=== PATIENT | female | born 1985 | race Caucasian/White ===

== ENCOUNTER 2017-01-27 20:41 | Emergency (ER) | payer OTHER ==
[~2017-01-27] VITALS: Ht 162.6 cm; Wt 49.4 kg
[2017-01-27 20:48] VITALS: TEMP 37; Ht 162.6 cm; Wt 49.4 kg
[2017-01-27] MEDS ORDERED: DiphenhydrAMINE HCL 50 MG/ML VIAL IV STA (21:51)
[2017-01-27] MEDS ORDERED: KETOROLAC TROMETHAMINE 30 MG/ML VIAL IV STA (21:51)
[2017-01-27] MEDS ORDERED: METOCLOPRAMIDE HCL INJ 5 MG/ML 2 ML VIAL IM STA (21:51)
[2017-01-27] MEDS ORDERED: NURSING VERBAL MED ORDER ONE (22:15)
[2017-01-27 22:18] LABS: BASO % 0.6 %; BASO ABS # 0.03 K/uL (0-0.2); COMPLETE YES; HEMATOCRIT 35.6 % (37-47); IG% 0.2 %; LYMPH % 33.8 %; LYMPH ABS # 1.83 K/uL (1.2-3.4); MEAN CELL VOLUME 89.2 fL (80-100); MEAN CORPUSCULAR HEMOGLOBIN 29.3 pg (25-34); MEAN CORPUSCULAR HGB CONC 32.9 g/dl (32-36); MEAN PLATELET VOLUME 10.4 fL (7.4-10.4); NEUT % 57.4 %; PLATELET COUNT 224 K/uL (130-400); RED BLOOD COUNT 3.99 M/uL (4.2-5.4); WHITE BLOOD COUNT 5.42 K/uL (4.8-10.8)
--- NOTE | 2017-01-27 22:26 | EMERGENCY ROOM VISIT NOTE ---
History Report prepared by Jody: Maik Jameson Under the Supervision of: Dr. Ebenezer Contreras D.O. First contact with patient: 21:38 Chief Complaint: HEADACHE Stated Complaint: HEADACHE, FEVER 102.7, STOMACH ISSUES,HEAD TENSION History of Present Illness The patient is a 31 year old female who presents to the Emergency Room with complaints of an intermittent headache starting a few months ago. The patient has been having a headache every day. She has a history of migraine headaches but reports that her current headache is different. She has been evaluated by multiple providers for her persistent headache. 2 days ago, she was evaluated at the Emergency Room in [place] for the headache. She received a negative CT scan. She was diagnosed with vertigo and was discharged home. The patient also complains of ear ache. She has worsening pain with exposure to light. She also reports intermittent fevers, nausea, and diffuse abdominal pain. She denies dizziness, weakness, or any other complaints. Source of History: patient Onset: a few months ago Position: head Timing: intermittent Modifying Factors (Worsening): other (exposure to light) Associated Symptoms: + abdominal pain, + fevers, + nausea, No weakness Review of Systems See HPI for pertinent positives and negatives. A total of ten systems were reviewed and were otherwise negative. Past Medical & Surgical Medical Problems: (1) Migraine headache Family History Patient reports no known family medical history. Social History Smoking Status: Current Some Day Smoker Marital Status: single Occupation Status: unemployed Current/Historical Medications Scheduled Buprenorphine Hcl-Naloxone Hcl (Suboxone 8-2 Mg), 0.5 TAB PO DAILY Omeprazole (Prilosec), 40 MG PO DAILY Scheduled PRN Ondansetron Hcl (Zofran), 4 MG PO Q6 PRN for Nausea Allergies Coded Allergies: Rizatriptan (Verified Allergy, Severe, SHORTNESS OF BREATH, 01/27/17) Physical Exam Vital Signs Date Time Temp Pulse Resp B/P Pulse Ox O2 Delivery O2 Flow Rate FiO2 01/27/17 22:40 61 20 113/77 100 Room Air 01/27/17 22:25 63 01/27/17 20:48 37.0 63 16 102/68 100 Room Air Physical Exam GENERAL: Awake, alert, well-appearing, in no distress. Photophobia. HENT: Normocephalic, atraumatic. Oropharynx unremarkable. EYES: Normal conjunctiva. Sclera non-icteric. NECK: Supple. No nuchal rigidity. FROM. No JVD. RESPIRATORY: Clear to auscultation. CARDIAC: Regular rate, normal rhythm. Extremities warm and well perfused. Pulses equal. ABDOMEN: Soft, non-distended. No tenderness to palpation. No rebound or guarding. No masses. RECTAL: Deferred. MUSCULOSKELETAL: Chest examination reveals no tenderness. The back is symmetrical on inspection without obvious abnormality. There is no CVA tenderness to palpation. No joint edema. LOWER EXTREMITIES: Calves are equal size bilaterally and non-tender. No edema. No discoloration. NEURO: Normal sensorium. No sensory or motor deficits noted. SKIN: No rash or jaundice noted. Medical Decision & Procedures Laboratory Results 01/27/17 22:05 Red Blood Count 3.99, Mean Corpuscular Volume 89.2, Mean Corpuscular Hemoglobin 29.3, Mean Corpuscular Hemoglobin Concent 32.9, Mean Platelet Volume 10.4, Neutrophils (%) (Auto) 57.4, Lymphocytes (%) (Auto) 33.8, Monocytes (%) (Auto) 5.0, Eosinophils (%) (Auto) 3.0, Basophils (%) (Auto) 0.6, Neutrophils # (Auto) 3.12, Lymphocytes # (Auto) 1.83, Monocytes # (Auto) 0.27, Eosinophils # (Auto) 0.16, Basophils # (Auto) 0.03 01/27/17 22:05 Test 01/27/17 22:05 White Blood Count 5.42 K/uL (4.8-10.8) Red Blood Count 3.99 M/uL (4.2-5.4) Hemoglobin 11.7 g/dL (12.0-16.0) Hematocrit 35.6 % (37-47) Mean Corpuscular Volume 89.2 fL (80-100) Mean Corpuscular Hemoglobin 29.3 pg (25-34) Mean Corpuscular Hemoglobin Concent 32.9 g/dl (32-36) Platelet Count 224 K/uL (130-400) Mean Platelet Volume 10.4 fL (7.4-10.4) Neutrophils (%) (Auto) 57.4 % Lymphocytes (%) (Auto) 33.8 % Monocytes (%) (Auto) 5.0 % Eosinophils (%) (Auto) 3.0 % Basophils (%) (Auto) 0.6 % Neutrophils # (Auto) 3.12 K/uL (1.4-6.5) Lymphocytes # (Auto) 1.83 K/uL (1.2-3.4) Monocytes # (Auto) 0.27 K/uL (0.11-0.59) Eosinophils # (Auto) 0.16 K/uL (0-0.5) Basophils # (Auto) 0.03 K/uL (0-0.2) RDW Standard Deviation 39.8 fL (36.4-46.3) RDW Coefficient of Variation 12.2 % (11.5-14.5) Immature Granulocyte % (Auto) 0.2 % Immature Granulocyte # (Auto) 0.01 K/uL (0.00-0.02) Anion Gap 5.0 mmol/L (3-11) Est Creatinine Clear Calc Drug Dose 96.9 ml/min Estimated GFR () 136.2 Estimated GFR (Non- 117.5 BUN/Creatinine Ratio 10.2 (10-20) Total Bilirubin 0.8 mg/dl (0.2-1) Direct Bilirubin 0.2 mg/dl (0-0.2) Aspartate Amino Transf (AST/SGOT) 27 U/L (15-37) Alanine Aminotransferase (ALT/SGPT) 39 U/L (12-78) Alkaline Phosphatase 39 U/L (45-117) Total Protein 8.0 gm/dl (6.4-8.2) Albumin 3.8 gm/dl (3.4-5.0) Laboratory results reviewed by me Medications Administered Medications (Trade) Dose Ordered Sig/Dale Route Start Time Stop Time Status Last Admin Dose Admin Diphenhydramine HCl (Benadryl Inj) 50 mg NOW STAT IV 01/27/17 21:51 01/27/17 21:53 DC 01/27/17 22:31 50 MG Ketorolac Tromethamine (Toradol Inj) 30 mg NOW STAT IV 01/27/17 21:51 01/27/17 21:53 DC 01/27/17 22:32 30 MG Metoclopramide HCl 10 mg 10 mg NOW STAT IM 01/27/17 21:51 01/27/17 21:53 DC 01/27/17 22:30 10 MG Sodium Chloride (Nss 1000ml) 1,000 ml @ 999 mls/hr Q1H1M IV 01/27/17 22:45 01/27/17 23:45 01/27/17 22:33 999 MLS/HR ECG Indication: other (Headache) Rate (beats per minute): 56 Rhythm: sinus bradycardia Findings: no acute ischemic change, other (Normal intervals; normal axis) ED Course 2137: The patient was evaluated in room C09. A complete history and physical exam was performed. 2150: Reglan Inj 10 mg IM, Toradol Inj 30 mg IV, Benadryl Inj 50 mg IV 3: I reevaluated the patient who is feeling much better. Discussed results and discharge instructions: She verbalized understanding and agreement. The patient is ready for discharge. Medical Decision Differential diagnosis includes but is not limited to migraine headache, tension headache, dehydration, electrolyte abnormalities. Repeat examination on the patient at 2304 the patient is resting in no distress nonfocal neurologically states improved headache. I discussed the evaluation including blood work with the patient patient's at bedside. Impression Primary Impression: Acute headache Scribe Attestation The scribe's documentation has been prepared under my direction and personally reviewed by me in its entirety. I confirm that the note above accurately reflects all work, treatment, procedures, and medical decision making performed by me. Departure Information Dispostion Home / Self-Care Referrals Demetri Amor M.D. (PCP) Forms HOME CARE DOCUMENTATION FORM, IMPORTANT VISIT INFORMATION Patient Instructions ED Headache Sinus, [facility] Problem Qualifiers Primary Impression: Acute headache Headache type: unspecified Intractability: not intractable Qualified Codes : R51 - Headache
[2017-01-27 22:39] LABS: BUN/CREATININE RATIO 10.2 (10-20); CREATININE 0.65 mg/dl (0.60-1.20); POTASSIUM 3.8 mmol/L (3.5-5.1)
[2017-01-27] MEDS ORDERED: ONDA4TAB46 PO (22:43)
[2017-01-27] MEDS ORDERED: OMEP40CA41 PO (22:43)
[2017-01-27] MEDS ORDERED: BUPR1SUB23 PO (22:43)
[2017-01-27] MEDS ORDERED: SODIUM CHLORIDE 0.9% 1000ML 1,000 ML IV SCH (22:45)
[2017-01-27 23:17] VITALS: BP 104/71; PULSE 52; O2SAT 98
[2017-01-27 23:17] LABS: CALCIUM 8.9 mg/dl (8.5-10.1)
== END 2017-01-27 23:24 | disposition home or self-care (01) ==
LOC: C.EDB 20:45 → C.EDC 23:24
DX: R51 Headache (principal); F17.200 Nicotine dependence, unspecified, uncomplicated; Z79.899 Other long term (current) drug therapy; Z88.8 Allergy status to other drugs, medicaments and biological substances